=== PATIENT | male | born 1950 | race Caucasian/White ===

== ENCOUNTER → 2021-01-28 | Outpatient (CLI) | payer OTHER | LOC: SJCVC 11:31 | PROVIDERS: ATTEND Internal Medicine Cardiovascular Disease | DX: R94.31 Abnormal electrocardiogram [ECG] [EKG] (principal); I44.0 Atrioventricular block, first degree; I45.10 Unspecified right bundle-branch block; I49.5 Sick sinus syndrome; D33.3 Benign neoplasm of cranial nerves; B02.9 Zoster without complications; K40.90 Unilateral inguinal hernia, without obstruction or gangrene, not specified as recurrent ==

== ENCOUNTER 2021-02-03 06:33 | Inpatient (IN) | payer OTHER ==
[~2021-02-03] VITALS: Ht 180.3 cm; Wt 80.3 kg
[2021-02-03 07:20] VITALS: BP 112/73
[2021-02-03 07:26] LABS: ABSOLUTE NEUTROPHILS 2.1 thou/uL (1.4-8.2); BASOPHILS 1.2 % (0.0-2.0); EOSINOPHILS 3.1 % (0.0-3.0); HEMATOCRIT 40.5 % (42.0-52.0); HEMOGLOBIN 13.7 gm/dL (14.0-18.0); LYMPHOCYTES 37.9 % (24.0-44.0); MCH 31.5 pg (26.0-34.0); MCHC 33.8 g/dL (28.0-37.0); MCV 93.3 fL (80.0-100.0); MONOCYTES 11.3 % (1.0-8.0); PLATELET COUNT 133 thou/uL (150-400); POLYS 46.5 % (36.0-66.0); RBC 4.34 mil/uL (4.50-6.00); RDW 13.4 % (10.5-14.5); WBC 4.5 thou/uL (4.0-11.0)
[2021-02-03 07:28] LABS: CALCIUM 8.9 mg/dL (8.5-10.1); POTASSIUM 3.9 mmol/L (3.5-5.1)
[2021-02-03 07:34] LABS: ALBUMIN 3.7 g/dL (3.4-5.0); TOTAL BILIRUBIN 0.4 mg/dL (0.2-1.0)
[2021-02-03 07:39] LABS: APTT 27.3 Seconds (24.5-32.8); INR 1.03; PROTIME 11.2 Seconds (10.5-12.1)
--- NOTE | 2021-02-03 14:37 | NUR ---
PT ORIENTED TO ROOM AND UNIT, BED LOW AND LOCKED, SIDE RAILS UPX3, CALL LIGHT IN REACH. PPM SITE LEFT UPPER CHEST CDI WITH NO HEMATOMA. TELE REVEAL A-PACD. ARM SLING IN PLACE. WILL CONTINUE TO ASSESS.
[2021-02-03 14:39] VITALS: BP 114/68
[2021-02-03 16:28] VITALS: BP 122/73
[2021-02-03 19:18] VITALS: BP 132/87
[2021-02-03 23:18] VITALS: BP 128/86
[2021-02-04 03:44] VITALS: BP 129/85
--- NOTE | 2021-02-04 06:48 | NUR ---
ASSUME CARE 1900. PT/VITALS STABLE. DENIES ANY PAIN. TOLERATES ACIVITY WELL. NO DISRESS NOTD. 100% APACED ON MONITOR/HR 60. ASSESSMENT CHARTED. PROGRESSING WELL WITH POC. PLAN IS POSSIBLE DISCHARGE TODAY. WILL CONTINUE TO MONITOR AND FOLLOW WITH POC
[2021-02-04 07:00] VITALS: BP 132/89
[2021-02-04 12:30] VITALS: BP 126/88
--- NOTE | 2021-02-04 15:22 | NUR ---
PT WAS FOUND TO HAVE A LARGE LEFT PNEUMOTHORAX THIS AM VIA CXR. PT WAS TAKEN TO IR FOR CHEST TUBE PLACEMENT. HE SUBSEQUENTLY CAME BACK TO CCU WITH A CT. PT IS 100% ATRIAL PACED. PT HAS NO COMPLAINTS OF SOB. PT AFEBRILE, ADEQUATE UOP, NO BM, POOR APPETITE. PT AND HAVE BEEN THOUROUGHLY UPDATED AND EDUCATED ON PT CONDITION AND POC. PT PROGRESSING TOWARDS POC.
[2021-02-04 16:00] VITALS: BP 132/83
[2021-02-04 21:16] VITALS: BP 128/78
[2021-02-05 03:30] VITALS: BP 134/86
[2021-02-05 07:15] VITALS: BP 137/86
--- NOTE | 2021-02-05 07:35 | NUR ---
ASSUMED PT CARE AT CHANGE OF SHIFT, C/O PAIN TO THE CT SITE, DENIES SOA, A PACED ON TELE, CT SITE INTACT, ASSESSMENTS CHARTED, NO ACUTE DISTRESS NOTED, REPORT GIVEN TO DAY RN
[2021-02-05 11:00] VITALS: BP 123/72
[2021-02-05 15:10] VITALS: BP 133/76
--- NOTE | 2021-02-05 15:38 | NUR ---
ASSUMED CARE OF PT AT 0700. PT ALERT AND ORIENTED X4. AT 1100 LEFT LATERAL CHEST TUBE TURNED TO WATER SEAL FROM -[address] WILLIS. CXR RESULTS CALLED TO DR WILLIS AT 1300. DR WILLIS AT BEDSIDE AT 1540. PLAN TO DISCHARGE PT AFTER CHEST TUBE REMOVAL. WILL CONTINUE TO MONITOR.
[2021-02-05 16:18] VITALS: BP 133/76
[2021-02-05 16:46] VITALS: BP 133/76
--- NOTE | 2021-02-11 12:49 | P ---
[facility] [place] [address] PROCEDURE REPORT Name: MOISES COSTA Room #: 201-P [facility] M.R.#: [id number] Admission: 02/03/21 Attend Phys: Leandro Hubbard MD Discharge: 02/05/21 Date of : 46 Report #: [id number] THIS REPORT FOR: cc: Osmar Gerard,Leandro Rangel MD ~ cc: Osmar Gerard DO DATE OF SERVICE: 02/03/2021 PROCEDURE: Pacemaker implantation. PREOPERATIVE DIAGNOSES: 1. Sick sinus syndrome. 2. Symptomatic bradycardia. POSTOPERATIVE DIAGNOSIS: 1. Sick sinus syndrome. 2. Symptomatic bradycardia. HISTORY: The patient is a 70-year-old with a recent increased fatigue and presyncopal symptoms with documented sick sinus syndrome, heart rates in the 30s. No AV fannie blocking agents. He is here for a dual chamber pacemaker implantation. ANESTHESIA: The patient underwent MAC anesthesia with no anesthesia related complications. DESCRIPTION OF PROCEDURE: The patient underwent informed consent. We discussed the details of the procedure including the risks, which include but not limited to bleeding, infection, vascular damage, cardiac perforation, pneumothorax. He understood these risks and is willing to proceed. The patient was brought to the EP laboratory in fasting and sedated state, prepped and draped in a standard fashion. He received IV antibiotics prior to initiation of the procedure and underwent a venogram showing patency of left axillary vein. Next, I injected lidocaine below the level of left clavicle. Incision was made, pocket created over the prepectoral fascia and access and then I attempted to obtain access to left axillary vein. Access was slightly difficult, so a second venogram was performed and then I was able to obtain access. Sheaths were then positioned using the modified Seldinger technique. Next, under fluoroscopy and RV lead was positioned at the right ventricular mid septum and then an atrial lead was placed in the right atrial appendage, both with adequate pacing and sensing thresholds. After I connected the leads to the device, it appeared that the RV lead had dislodged, so I again repositioned the RV lead at this time into the apical septum with adequate sensing and pacing [facility] [address] [place] [address] PROCEDURE REPORT Name: IGORMOISES Room #: 201-P [facility].#: [id number] Admission: 02/03/21 Attend Phys: Leandro Hubbard MD Discharge: 02/05/21 Date of : 46 Report #: [id number] thresholds. The leads were sutured to the prepectoral fascia, connected to the device. Tug test performed. Pocket was irrigated with vancomycin. Pocket was then closed in 2 layers using 2-0 for the deep layer, 3-0 for the middle layer and surgical glue was placed to outer skin layer. The patient awoke neurologically and hemodynamically intact. No complications and no significant bleeding. The implanted pacemaker was a [employer]tronic model number W3DR01, serial #[id number]. The leads were 5076 atrial lead with serial #[id number]. RV lead, serial #[id number]. Atrial lead demonstrated P waves of 2.5 millivolts, pacing impedance of 456 ohms, pacing threshold of 0.4 volts at 0.5 milliseconds. The RV lead demonstrated R waves of 9.1 millivolts, pacing impedance of 627 ohms, pacing threshold of 0.6 volts at 0.5 milliseconds. The device was programmed DDDR 60-130 mode. CONCLUSIONS: 1. Successful dual chamber pacemaker implantation. 2. Satisfactory atrial and ventricular pacing and sensing thresholds. <ELECTRONICALLY SIGNED> By: Leandro Hubbard MD 02/11/21 1249 [id number] Leandro Hubbard MD /nt
== END 2021-02-05 16:45 | disposition home or self-care (01) | DRG 244 ==
LOC: CATH 06:33 → 2N 14:29 → CATH 17:54 → 2N 17:55
PROVIDERS: ADMIT Internal Medicine Cardiovascular Disease; ATTEND Internal Medicine Cardiovascular Disease
DX: I49.5 Sick sinus syndrome (principal); Z20.822 Contact with and (suspected) exposure to COVID-19; Z79.899 Other long term (current) drug therapy
CPT/HCPCS: 10081; 62110; 62900; 70005